=== PATIENT | male | born 1980 | race Caucasian/White ===

== ENCOUNTER 2017-01-02 22:02 | Emergency (ER) | payer OTHER ==
[~2017-01-02] VITALS: Ht 177.8 cm; Wt 82.1 kg
[~2017-01-02 22:02] MED LIST: ADVIL200 M1 PO; DICLOFENAC SODI75 MG PO; HYDROCODON-ACE1 EA11 PO; MEDROL4 M1 PO; MELOXICAM7.5 MG PO; NORCO 5-325 TA1 EACH PO; NORCO 7.5-3251 EACH PO; TYLENOL325 MG PO
[2017-01-02] MEDS ORDERED: NAPROXEN500 MG PO (22:19)
[2017-01-02] MEDS ORDERED: NEURONTIN300 MG PO (22:19)
[2017-01-02] MEDS ORDERED: NORCO 5-325 TA1 EACH PO (22:41)
[2017-01-02] MEDS ORDERED: CLINDAMYCIN HC300 MG PO (22:41)
== END 2017-01-02 22:58 | disposition home or self-care (01) ==
LOC: ED 22:02
DX: K04.7 Periapical abscess without sinus (principal); Z79.899 Other long term (current) drug therapy
CPT/HCPCS: 99283